=== PATIENT | male | born 1970 | race Caucasian/White ===

== ENCOUNTER 2018-12-02 09:45 | Emergency (ER) | payer SELFPAY ==
[2018-12-02] MEDS ORDERED: Dental Adhesive 1 Tube DENT ONE (10:24)
--- NOTE | 2018-12-02 10:28 | EDM.PDOC ---
ED HPI GENERAL MEDICAL PROBLEM - General Chief Complaint: ENT Problem Stated Complaint: TOOTH ACHE Time Seen by Provider: 12/02/18 10:15 Source of Information: Reports: Patient, RN Notes Reviewed History Limitations: Reports: No Limitations - History of Present Illness INITIAL COMMENTS - FREE TEXT/NARRATIVE: 48-year-old gentleman presents emergency department day complaint of dental pain , he is traveling here from [place] he's not sure when he broke his tooth but now is experiencing significant pain he has been using ibuprofen and Tylenol with minimal relief, will be heading home in 3 days Left Upper Tooth/Teeth Pain Score (Numeric/FACES): 10 - Related Data Allergies Allergy/AdvReac Type Severity Reaction Status Date / Time Penicillins Allergy Anaphylactic Verified 12/02/18 10:09 Shock Home Meds: Home Meds NK [No Known Home Meds] 12/02/18 [History] Past Medical History Cardiovascular History: Reports: Hypertension Genitourinary History: Reports: Other (See Below) Other Genitourinary History: stage II kidney disease. Musculoskeletal History: Reports: Fracture - Past Surgical History Musculoskeletal Surgical History: Reports: Other (See Below) Other Musculoskeletal Surgeries/Procedures:: surgery on fractured elbow Social & Family History - Tobacco Use Smoking Status *Q: Light Tobacco Smoker Years of Tobacco use: 20 Packs/Tins Daily: 0.3 - Recreational Drug Use Recreational Drug Use: No ED ROS ENT - Review of Systems Review Of Systems: See Below HEENT: Reports: Dental Pain GI/Abdominal: Reports: No Symptoms ED EXAM, ENT - Physical Exam Exam: See Below Text/Narrative:: Mouth mucosa is moist and pink no erythema or exudate noted some palate tongue is midline uvula is midline dentition is poor tooth #14 is fractured tenderness to palpation in that area Exam Limited By: No Limitations General Appearance: Alert, WD/WN, No Apparent Distress Respiratory/Chest: No Respiratory Distress Course - Vital Signs Last Recorded V/S: Last Vital Signs Temp 95.0 F L 12/02/18 10:08 Pulse 91 12/02/18 10:08 Resp 16 12/02/18 10:08 BP 153/99 H 12/02/18 10:08 Pulse Ox 98 12/02/18 10:08 - Orders/Labs/Meds Orders: Active Orders 24 hr Category Date Time Status Dental Adhesive [Dentemp Custom] Med 12/02/18 10:24 Once 1 applic DENT ONETIME ONE Departure - Departure Time of Disposition: 10:27 Disposition: Home, Self-Care 01 Condition: Fair Clinical Impression: Tooth fracture Qualifiers: Encounter type: initial encounter Fracture type: open Qualified Code(s): S02.5XXB - Fracture of tooth (traumatic), initial encounter for open fracture - Discharge Information Referrals: PCP,None [Primary Care Provider] - Additional Instructions: Continued use hydrocodone as needed for pain control, use ibuprofen for baseline pain control, please follow-up with your dentist upon return home - My Orders Last 24 Hours: My Active Orders 12/02/18 10:24 Dental Adhesive [Dentemp Custom] 1 applic DENT ONETIME ONE - Assessment/Plan Last 24 Hours: My Active Orders 12/02/18 10:24 Dental Adhesive [Dentemp Custom] 1 applic DENT ONETIME ONE Plan: Assessment Acuity = acute Site and laterality = fracture tooth #14 Etiology = dental caries Manifestations = pain Location of injury = Home Lab values = none Plan Hydrocodone 5/325 one tab by mouth 3 times a day when necessary total #20, didn' t temp was placed over the fracture tooth follow-up with dentistry upon return home This note was dictated using [employer] voice recognition software please call with any questions on syntax or grammar.
== END 2018-12-02 10:47 | disposition home or self-care (01) ==
LOC: JP.ED 09:45
DX: K03.81 Cracked tooth (principal); I10 Essential (primary) hypertension; F17.210 Nicotine dependence, cigarettes, uncomplicated; Z88.0 Allergy status to penicillin
CPT/HCPCS: 99283; A9270-GY